=== PATIENT | female | born 1975 | race African-American/Black ===

== ENCOUNTER 2020-02-07 10:06 | Emergency (ER) | payer MEDICAID ==
[~2020-02-07] VITALS: Ht 165.1 cm; Wt 70.0 kg
[2020-02-07 11:30] LABS: HEMATOCRIT. 35.1 % (36.0-48.0); MEAN CORPUSCULAR HEMOGLOBIN 22.1 pg (28.0-32.0); MEAN CORPUSCULAR VOLUME 64.5 fL (81.0-99.0); MEAN PLATELET VOLUME 9.6 fl (7.4-10.4); PLATELET 157 x1000/uL (130-400); RED BLOOD CELL COUNT 5.44 mill/uL (4.2-5.4); RED CELL DISTRIBUTION WIDTH 17.3 % (11.6-14.6)
[2020-02-07 11:48] LABS: CHLORIDE 109 mEq/L (98-107)
[2020-02-07 12:16] VITALS: BP 123/78
[2020-02-07 12:52] LABS: PLATELET ESTIMATE NORMAL
== END 2020-02-07 12:16 | disposition home or self-care (01) ==
LOC: ER 10:06
DX: R20.2 Paresthesia of skin (principal)
CPT/HCPCS: 36415; 80053; 81025; 85025; 99284